=== PATIENT | male | born 1960 | race Caucasian/White ===

== ENCOUNTER 2021-10-23 08:24 | Day surgery (SDC) | payer OTHER ==
[~2021-10-23] VITALS: Ht 188 cm; Wt 107.1 kg
--- NOTE | 2021-10-23 10:28 | NUR ---
10/23/21 1028 Yeni Wolff CALL LIGHT WITHIN REACH
== END 2021-10-23 12:35 | disposition home or self-care (01) ==
LOC: ORSCSDS 08:24
PROVIDERS: Student in an Organized Health Care Education/Training Program
PROC: 0DBC8ZX Excision of Ileocecal Valve, Via Natural or Artificial Opening Endoscopic, Diagnostic (ICD-10-PCS; principal; 2021-10-23 10:15)
PROC: 0DBK8ZX Excision of Ascending Colon, Via Natural or Artificial Opening Endoscopic, Diagnostic (ICD-10-PCS; principal; 2021-10-23 10:15)
PROC: 0DBM8ZX Excision of Descending Colon, Via Natural or Artificial Opening Endoscopic, Diagnostic (ICD-10-PCS; principal; 2021-10-23 10:15)
PROC: 0DBN8ZX Excision of Sigmoid Colon, Via Natural or Artificial Opening Endoscopic, Diagnostic (ICD-10-PCS; principal; 2021-10-23 10:15)
PROC: 0DBL8ZX Excision of Transverse Colon, Via Natural or Artificial Opening Endoscopic, Diagnostic (ICD-10-PCS; principal; 2021-10-23 10:15)
PROC: 0DBP8ZX Excision of Rectum, Via Natural or Artificial Opening Endoscopic, Diagnostic (ICD-10-PCS; principal; 2021-10-23 10:15)
DX: Z12.11 Encounter for screening for malignant neoplasm of colon (principal); Z86.010 Personal history of colon polyps; D12.2 Benign neoplasm of ascending colon; D12.3 Benign neoplasm of transverse colon; D12.4 Benign neoplasm of descending colon; D12.5 Benign neoplasm of sigmoid colon; D12.0 Benign neoplasm of cecum; D12.8 Benign neoplasm of rectum
CPT/HCPCS: 88305; J2704; J7120

== ENCOUNTER 2024-08-31 08:12 | Day surgery (SDC) | payer OTHER ==
[~2024-08-31] VITALS: Ht 188 cm; Wt 109.4 kg
[~2024-08-31 08:12] MED LIST: Lactated Ringer's 1,000 ML IV ONE; propofoL 50 ML IV ONE
[2024-08-31] MEDS ORDERED: Lactated Ringer's 1,000 ML IV ONE (09:29)
[2024-08-31 11:07] VITALS: BP 137/90
== END 2024-08-31 11:06 | disposition home or self-care (01) ==
LOC: ORSCSDS 08:12
PROVIDERS: Specialist
PROC: 0DBC8ZX Excision of Ileocecal Valve, Via Natural or Artificial Opening Endoscopic, Diagnostic (ICD-10-PCS; principal; 2024-08-31 10:00)
PROC: 0DBP8ZX Excision of Rectum, Via Natural or Artificial Opening Endoscopic, Diagnostic (ICD-10-PCS; principal; 2024-08-31 10:00)
DX: Z12.11 Encounter for screening for malignant neoplasm of colon (principal); C7A.8 Other malignant neuroendocrine tumors; D12.8 Benign neoplasm of rectum; Z86.0101 Personal history of adenomatous and serrated colon polyps; K64.8 Other hemorrhoids
CPT/HCPCS: 88305; 88341; 88342; J2704; J7120

== ENCOUNTER 2024-11-23 10:19 | Inpatient (IN) | payer OTHER ==
[~2024-11-23] VITALS: Ht 188 cm; Wt 114.5 kg
[2024-11-23] VITALS (28 sets, daily range): BP systolic 117–180; BP diastolic 74–121
[2024-11-23] MEDS ORDERED: Acetaminophen 500 MG Tab PO SCH (10:20)
[2024-11-23] MEDS ORDERED: Lactated Ringer's 1,000 ML IV SCH ×2 (10:20→19:05)
[2024-11-23] MEDS ORDERED: Gabapentin 300 MG Cap PO ONE (10:25)
[2024-11-23] MEDS ORDERED: Heparin Sodium,Porcine 5,000 UNIT/0.5 ML SDV SC ONE (10:25)
[2024-11-23] MEDS ORDERED: Heparin Sodium 5000 Units/ML 1ML MDV SC ONE (11:10)
[2024-11-23] MEDS ORDERED: Acetaminophen 500 MG Tab ONE (11:12)
[2024-11-23] MEDS ORDERED: propofoL 150 ML IV ONE (11:42)
[2024-11-23] MEDS ORDERED: Lidocaine HCl 4% 5 ML SDA ONE (11:42)
[2024-11-23] MEDS ORDERED: Ondansetron HCl 2 MG / ML 2ML Vial ONE (12:07)
[2024-11-23] MEDS ORDERED: Sugammadex Sodium 200 MG/2ML SDV (100 MG/ML) ONE (12:07)
[2024-11-23] MEDS ORDERED: Ketorolac Tromethamine 30mg Vial ONE ×2 (12:07→15:46)
[2024-11-23] MEDS ORDERED: Metoclopramide HCl 5MG / ML 2ML Vial ONE (12:07)
[2024-11-23] MEDS ORDERED: HYDROmorphone HCl/Pf 1MG SYR ONE ×2 (12:07→17:08)
[2024-11-23] MEDS ORDERED: Dexamethasone Sod Phos 10 MG/ML 1ML VIAL ONE ×2 (12:07→12:30)
[2024-11-23] MEDS ORDERED: Rocuronium Bromide 10 MG/ML 5ML Injection IV ONE ×3 (12:07→16:29)
[2024-11-23] MEDS ORDERED: Bupivacaine 0.5% W/EPI 1:200000 SDV 30 ML Vial ONE (12:08)
[2024-11-23] MEDS ORDERED: Piperacillin/Tazobactam Sod 3.375 GM in NS 100 ML IV SCH ×2 (12:10→18:00)
[2024-11-23] MEDS ORDERED: Ropivacaine 0.5% HCL/PF 5 MG/ML 30ML Vial ONE (12:20)
[2024-11-23] MEDS ORDERED: EpiNEPhrine 1 MG/1 ML 1ML Vial ONE (12:30)
[2024-11-23] MEDS ORDERED: Famotidine 10 MG/ML 2ML Vial ONE (13:02)
[2024-11-23] MEDS ORDERED: Phenylephrine HCl 100 MCG/ML-NS 10MLSYR (1MG/10ML) ONE (13:07)
[2024-11-23] MEDS ORDERED: Glycopyrrolate 0.2 MG/ML 5ML VIAL ONE (13:12)
[2024-11-23] MEDS ORDERED: Esmolol HCL 10 MG/ML 10ML VIAL ONE (13:26)
[2024-11-23] MEDS ORDERED: FentaNYL Citrate 50 MCG/ML 2 ML Injection ONE (13:36)
[2024-11-23] MEDS ORDERED: Metoprolol Tartrate 5 ML IV ONE (13:43)
[2024-11-23] MEDS ORDERED: propofoL 60 ML IV ONE (14:32)
[2024-11-23] MEDS ORDERED: propofoL 50 ML IV ONE ×2 (16:12→17:07)
[2024-11-23] MEDS ORDERED: propofoL 20 ML IV ONE ×2 (16:54→17:47)
--- NOTE | 2024-11-23 18:30 | NUR ---
11/23/241829 Katrina Marroquin AT THE END OF CASE, PERFORMED A BILATERAL TAP BLOCK ON THE PATIENT PRIOR TO EXTUBATION.
[2024-11-23] MEDS ORDERED: Metoclopramide HCl 5MG / ML 2ML Vial IV PRN (19:05)
[2024-11-23] MEDS ORDERED: OxyCODONE HCL 5 MG TAB PO PRN (19:05)
[2024-11-23] MEDS ORDERED: Ondansetron HCl 2 MG / ML 2ML Vial IV PRN (19:05)
[2024-11-23] MEDS ORDERED: HYDROmorphone HCl/Pf 1MG SYR IV PRN (19:10)
[2024-11-23] MEDS ORDERED: FLU VACC TS2024-25(6MOS UP)/PF 45 MCG/0.5 ML SYRINGE IM ONE (19:10)
[2024-11-23] MEDS ORDERED: Naloxone HCl 0.4MG / ML 1ML Vial ONE (19:21)
[2024-11-23] MEDS ORDERED: Naloxone HCl 0.4MG / ML 1ML Vial IV ONE (19:30)
[2024-11-23] MEDS ORDERED: Labetalol HCL 5 MG/ML 4ML Injection (Single Dose) ONE (19:48)
[2024-11-23] MEDS ORDERED: Docusate Sodium 100 MG Cap PO SCH (21:00)
--- NOTE | 2024-11-23 21:03 | NUR ---
BP: DR CARMONA NOTIFIED OF PT BP TRENDING HTN. NEW ORDER TO CONSULT HOSPITALIST FOR BP MGMT AND TO MAKE SURE BP DOES NOT GET TOO LOW, STATES WOULD RATHER BP TO TREND HIGHER R/T NEW ANASTOMOSIS. HOSPITALIST EDDIE NOTIFIED OF CONSULT. DISCUSSED SURGEONS RECOMMENDATIONS R/T BP. NEW PARAMETERS REC TO NOTIFY OF SBP >180 OR DBP >100. PRIMARY RN UPDATED.
[2024-11-23] MEDS ORDERED: NS 250 ML IV PRN (23:10)
[2024-11-24] MEDS ORDERED: Acetaminophen 500 MG Tab PO SCH
[2024-11-24] MEDS ORDERED: HydrALAZINE HCl 20 MG / ML 1ML Vial IV PRN ×2 (00:05)
[2024-11-24 03:38] VITALS: BP 141/81
--- NOTE | 2024-11-24 03:44 | NUR ---
SHIFT SUMMARY NOC PT A/O X 4. PLEASANT AND COOPERATIVE WITH CARE. POST OP VSS. PT HAS R HEMICOLECTOMY AND TUMOR REMOVED, [address] LLQ AND ONE LARGER LAP ON RLQ, CLOSED WITH SURGICAL GLUE, DURING SHIFT 3 TOP LAP SITES BEGAN WEEPING SLIGHT AMOUNT OF BLOOD FROM PT MOVING AROUND, SITES REINFORCED WITH 4X4 GUAZE FOLDED AND COVERED WITH MEPITEL DRESSINGS. PT REQUIRED HEAVY SEDATIONAND REQUIRED NARCAN TO AROUSE. PT CAME TO FLOOR GROGGY AND NODDINGIN AND OUT. PT ALSO CAME TO UNIT WITH GARZON IN PLACE DUE TO LONGSURGERY, GARZON WAS FOUND TO BE LEAKING UPON ASSESSMENT, BALLOON DEFLATED AND REFLATED W/O SUCCESS. PT ALSO WAS HAVING SEVERE PAIN AND DISCOMFORT AT HEAD OF PENIS AND HAD BURNING WITH URINATION.GARZON WAS D/C AND PT IS VOIDING ON OWN W/O ISSUE. PT REQUIRED PAIN RX DUE TO PENIS PAIN, AND NOT FROM SURGICAL SITE. PT HAS LR INFUSING @ 75 ML/HR WITH ORDER TO SALINE LOCK IF ADEQUATE PO INTAKE, WHICH PT IS DRINKING CLEAR LIQUIDS AND URINATING FREQUENTLY. PT CURRENTLY RESTING WITH BED IN LOWEST POSITION, AND CALL LIGHT WITHIN REACH.
[2024-11-24 05:25] LABS: BASOPHILS ABSOLUTE AUTO 0.01 K/mm3 (0.00-0.23); BASOPHILS PERCENT AUTO 0 % (0-2); EOSINOPHILS PERCENT AUTO 0 % (0-6); Hematocrit 47.3 % (37.0-53.0); Hemoglobin 16.3 g/dL (13.5-17.5); IMMATURE GRAN ABSOLUTE AUTO 0.03 K/mm3 (0.00-0.10); IMMATURE GRAN PERCENT AUTO 0 % (0-1); LYMPHOCYTES ABSOLUTE AUTO 0.38 K/mm3 (0.84-5.20); LYMPHOCYTES PERCENT AUTO 4 % (21-46); MONOCYTES ABSOLUTE AUTO 0.45 K/mm3 (0.16-1.47); MONOCYTES PERCENT AUTO 5 % (4-13); Mean Corpuscular HGB 30.9 pg (26.0-34.0); Mean Corpuscular HGB Conc 34.5 g/dL (31.5-36.5); Mean Corpuscular Volume 90 fL (80-100); NEUTROPHILS ABSOLUTE AUTO 8.16 K/mm3 (1.96-9.15); NEUTROPHILS PERCENT AUTO 90 % (41-73); Platelet Count 262 K/mm3 (150-400); RDW Coefficient Variation 12.5 % (11.7-14.2); RDW Standard Deviation 41.3 fL (35.1-46.3); Red Blood Cell Count 5.27 M/mm3 (4.30-5.90); White Blood Cell Count 9.03 K/mm3 (4.00-11.30)
[2024-11-24 06:03] LABS: Bun/Creatinine Ratio 11.9 (12.0-20.0); Calcium, Blood 9.2 mg/dL (8.5-10.1); Creatinine, Blood 1.09 mg/dL (0.60-1.20); Potassium, Blood 4.4 mmol/L (3.5-5.5)
[2024-11-24 07:53] VITALS: BP 123/62
--- NOTE | 2024-11-24 09:48 | NUR ---
ENTERED PATIENTR ROOM AT 0925 AND SAW THAT THE IV ANTIBIOTIC ZOSYN WAS NOT INFUSING. CHARGE NURSE CORINA RESTARTED INFUSION. CONTACTED PHARMACY AND THEY STATED TO SKIP 1200 DOSE OF ZOSYN TO GET PATIENT SCHEDULED DOSES BACK ON TRACK.
[2024-11-24 15:31] VITALS: BP 134/78
--- NOTE | 2024-11-24 18:00 | NUR ---
SHIFT SUMMARY PATIENT ALERT ORIENTED AND PLEASANT THROUGHOUT THE DAY. PATIENT STATED PAIN HAS BEEN ADEQUATELY CONTROLLED AND DENIED CONCERNS. DIET UPGRADED TO FIBER RESTRICTED. PATIENT UP AND TO THE BATHROOM INDEPENDTLY THROUGHOUT THE DAY WITHOUT DIFFICULTY BUT HAS FRONT WHEEL WALKER IN ROOM IF NEEDED. PATIENT PASSING GAS AND URINATING IN TOILET.
[2024-11-24 20:17] VITALS: BP 130/71
[2024-11-25 04:04] VITALS: BP 138/84
--- NOTE | 2024-11-25 06:57 | NUR ---
SHIFT SUMMARY NOC. PT S/P RIGHT SAMANTHA COLECTOMY. 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 PT MEDICATED FOR PAIN WITH REPORTED RELIEF OF SX. PT AMBULATING HALLS AND PASSING GAS. PT CALLS APPROPRIATELY. CALL LIGHT IN REACH.
[2024-11-25 07:59] VITALS: BP 147/90
[2024-11-25] MEDS ORDERED: AMOX-CLAV 875-1 EAC1 PO (08:56)
[2024-11-25] MEDS ORDERED: Percocet 5-3251 EACH PO (08:56)
--- NOTE | 2024-11-25 11:11 | NUR ---
PATIENT DISCHARGED AND AWAITING RIDE FROM HIS . DISCHARGE INSTRUCTIONS REVIEWED AND PROVIDED TO PATIENT. PATIENT INSTRUCTED ON WHEN TO GO TO EMERGENCY ROOM AND REVIEWED SIGNS SYMPTOMS OF COMPLICATIONS. PATIENT DENIED QUESTIONS/CONCERNS.
[2024-11-25] MEDS ORDERED: Colace100 MG PO (11:28)
[2024-11-25] MEDS ORDERED: VISBIOME 112.51 EACH PO (11:29)
[2024-11-25] MEDS ORDERED: Prinivil10 MG PO (11:30)
== END 2024-11-25 11:29 | disposition home or self-care (01) | DRG 331 ==
LOC: SURS 10:19 → MEDS 10:19 → PRE IP 12:00 → SURS 20:20
PROVIDERS: ADMIT Surgery
PROC: 0DTF4ZZ Resection of Right Large Intestine, Percutaneous Endoscopic Approach (ICD-10-PCS; 2024-11-23)
PROC: 0DXU4ZW Transfer Omentum to Abdominal Region, Percutaneous Endoscopic Approach (ICD-10-PCS; 2024-11-23)
PROC: 0DNB4ZZ Release Ileum, Percutaneous Endoscopic Approach (ICD-10-PCS; 2024-11-23)
PROC: 8E0W4CZ Robotic Assisted Procedure of Trunk Region, Percutaneous Endoscopic Approach (ICD-10-PCS; 2024-11-23)
PROC: 0DBB4ZZ Excision of Ileum, Percutaneous Endoscopic Approach (ICD-10-PCS; principal; 2024-11-23 12:00)
DX: C7A.012 Malignant carcinoid tumor of the ileum (principal); E66.9 Obesity, unspecified; I10 Essential (primary) hypertension; K66.0 Peritoneal adhesions (postprocedural) (postinfection); Z68.31 Body mass index [BMI] 31.0-31.9, adult
CPT/HCPCS: 36415; 80048; 82947; 85025; A9270; J0171; J1100; J1171; J1644; J1885; J2003; J2310; J2371; J2405; J2543; J2704; J2765; J2795; J3010; J7050; J7120